=== PATIENT | male | born 1945 | race Caucasian/White ===

== ENCOUNTER 2017-02-09 16:53 | Emergency (ER) | payer OTHER ==
[~2017-02-09] VITALS: Ht 172.7 cm; Wt 82.5 kg
--- NOTE | ~2017-02-09 | CT4 ---
[facility] A Service of [facility] & [facility] RADIOLOGY TEXT RESULTS PATIENT: NAKUL MILES LOCATION: [facility] : 47 UNIT #: [id number] AGE: [address]: Quang Barrera MD SEX: M ORDER DR: [id number] [facility] [address] [place], [place] [address] [id number] MR#: [id number] Acc #: [id number] NAME: NAKUL MILES. : 1945 SEX: M STUDY DATE/TIME: 02/09/2017 22:13 UNIT: [facility] ROOM: STUDY DESCRIPTION: CT Abd and Pelv Wo Cont Attending Physician: Quang Barrera M.D. Ordering Physician: Quang Barrera M.D. Primary Care Physician: Kurtis Dexter M.D. MEDICAL IMAGING REPORT This report is preliminary unless electronic signature is present EXAM CT abdomen and pelvis without contrast HISTORY Left-sided abdominal pain since 02/08/2017. TECHNIQUE Axial images performed through the abdomen and pelvis without contrast. Multiplanar reconstructed images reviewed. This CT exam was performed with one or more of the following radiation dose reduction techniques: automatic exposure control, adjustment of mA and/or kV according to patient size, and iterative reconstruction. FINDINGS ABDOMEN: The visualized lung bases unremarkable. Incidentally noted are coronary artery calcifications as well as a mildly dilated aortic root at 4.9 cm as measured at the level of the MPA. Liver, spleen and gallbladder appear normal. Pancreas and adrenal glands unremarkable. Bilateral nonobstructing renal stones. Visualized GI tract demonstrates diverticulosis left colon without diverticulitis. The appendix is normal. Retroperitoneum unremarkable. PELVIS: Bladder and prostate unremarkable. 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 Multilevel degenerative disc disease lower lumbar spine as well as multilevel facet arthropathy. High grade spinal stenosis L4-5. IMPRESSION 1. Colonic diverticulosis without diverticulitis. 2. Nonobstructing bilateral renal stones. 3. Arthritic change seen at the pubic symphysis and also within both hip joints. Extensive chondrocalcinosis about the pubic symphysis could STS. [facility] A Service of [facility] & [facility] RADIOLOGY TEXT RESULTS PATIENT: NAKUL MILES LOCATION: [facility] : 47 UNIT #: [id number] AGE: [address]: Quang Barrera MD SEX: M ORDER DR: be indicative of pseudogout or CPPD. 4. Multilevel degenerative disc disease and facet arthropathy lumbar spine with high-grade stenosis L4-5. Dictated by... Dino Rodriguez M.D. THIS IS AN ELECTRONICALLY VERIFIED REPORT Dino Rodriguez M.D. at 02/10/2017 2:34 PM BRENDEN/veronica TD: 02/10/2017 08:22 JOB #: [id number] MEDICAL IMAGING REPORT Page 1 of 1 COPY
[~2017-02-09 16:53] MED LIST: AMOXICILLIN PO; AURALGAN OTIC S10 ML AD; CRESTOR PO; GLUCOSAMINE; MULTI-VITAMIN1 TAB PO; NORVASC PO; ORUDIS75 M1 PO; TENORETIC PO; ZANTAC PO
[2017-02-09 17:31] LABS: BASOPHIL# 0.1 X10e3 (0-0.3); EOSINOPHIL# 0.1 X10e3 (0-0.7); EOSINOPHIL% 1.2 % (0.0-7.0); HEMOGLOBIN 13.9 gm/dL (13.0-16.0); LYMPHOCYTE# 1.6 X10e3 (1.0-3.5); MEAN CELL VOLUME 89.6 FL (83-96); MEAN CORPUSCULAR HEMOGLOBIN 31.1 PG (28-34); MEAN CORPUSCULAR HGB CONC 34.7 g/dL (30-36); MEAN PLATELET VOLUME 6.7 FL (6.5-11.5); MONOCYTE# 0.7 X10e3 (0-1.0); MONOCYTE% 7.2 % (3.0-12.0); NEUTROPHIL# 7.5 X10e3 (1.5-7.1); NEUTROPHIL% 74.6 % (40-75); PLATELET COUNT 281 X10e3 (140-420); RED BLOOD COUNT 4.46 X10e (3.90-5.60); RED CELL DISTRIBUTION WIDTH 13.2 % (11.0-15.5)
[2017-02-09 18:09] LABS: ALBUMIN SERUM 3.7 g/dL (3.5-5.0); BILIRUBIN,TOTAL 0.9 mg/dL (0.2-2.0); BUN/CREATININE RATIO 15.38; CALCIUM SERUM 9.1 mg/dL (8.4-10.2); CREATININE SERUM 1.3 mg/dL (0.6-1.4); GLOM FILT RATE Estimated 55.3 mL/min (>60); PROTEIN TOTAL SERUM 6.6 g/dL (6.0-8.3)
[2017-02-09 18:15] LABS: DIFF IND NO
[2017-02-09 20:12] LABS: URINE SOURCE CLEAN CATCH
[2017-02-09 20:19] LABS: URINE APPEARANCE CLEAR; URINE BILIRUBIN NEG (NEG); URINE BLOOD TRACE (NEG); URINE COLOR YELLOW; URINE GLUCOSE NEG (NEG); URINE KETONE NEG (NEG); URINE LEUKOCYTE ESTERASE NEG (NEG); URINE NITRATE NEG (NEG); URINE PROTEIN NEG (NEG); URINE UROBILINOGEN 0.2 MG/DL (NEG)
[2017-02-09 20:22] LABS: URBCS1 AUWI 0-2 /[HPF] (0-2); URINE BACTERIA AUWI NEG (NEGATIVE); URINE SQUAMOUS EPITHELIAL CELL NONE SEEN /[HPF]; UWBCS1 AUWI 0-2 (0-5)
[2017-02-09 20:27] LABS: CULTURE INDICATED? NO
== END 2017-02-09 23:20 | disposition home or self-care (01) ==
LOC: CED 16:53
DX: S39.011A Strain of muscle, fascia and tendon of abdomen, initial encounter (principal); I10 Essential (primary) hypertension; Z88.5 Allergy status to narcotic agent; X50.1XXA Overexertion from prolonged static or awkward postures, initial encounter
CPT/HCPCS: 74176; 80053; 81003; 85025; 96372; 99284; J1885